=== PATIENT | female | born 1960 | race Caucasian/White ===

== ENCOUNTER 2023-05-31 09:57 | Outpatient (CLI) | payer OTHER ==
[~2023-05-31] VITALS: Ht 167.6 cm; Wt 81.1 kg
[~2023-05-31 09:57] MED LIST: AMBIEN 10MG10 MG PO; CARAFATE 1GM1 G PO; CITRACAL + D CA1 TAB PO; ESTRACE 1MG1 MG/TAB PO; FIORICET 325 MG1 TA1 PO; FIORINAL 325 MG1 CAP PO; FLEXERIL 1010 MG/TAB PO; IMITREX100 MG PO; KLONOPIN 1MG1 MG PO; NATURAL POTASS595 MG PO; NEURONTIN300 MG/CAP PO; PHENERGAN 25 TA25 MG PO; PRIL40 PO; SYNTHROID 0.10.15 MG PO; SYNTHROID0.137 MG PO; TENORMIN 2525 MG/TAB PO; VITAMIND3 5000 PO
[2023-05-31] MEDS ORDERED: EMGALITY120 MG/1 M SQ (10:48)
[2023-05-31] MEDS ORDERED: GAVISCON F1 TAB.CHEW PO (10:53)
[2023-05-31] MEDS ORDERED: ARTHROTEC 775 MG/TAB PO (10:53)
[2023-05-31] MEDS ORDERED: PERCOCET 325 MG1 TA2 PO (10:54)
[2023-05-31] MEDS ORDERED: FLEXERIL 1010 MG/TAB PO (10:54)
[2023-05-31] MEDS ORDERED: REGLAN 10MG10 MG/TAB PO (10:54)
[2023-05-31 11:00] VITALS: BP 141/84; PULSE 64; TEMP 98.2
--- NOTE | 2023-05-31 11:05 | NUR ---
Nothing detectable on post void bladder scan. Pt exits dept with steady gait.
== END 2023-05-31 11:30 | disposition home or self-care (01) ==
LOC: EUO 09:57
DX: R30.0 Dysuria (principal)

== ENCOUNTER → 2023-11-16 | Outpatient (CLI) | payer OTHER ==
[~2023-11-16] MED LIST changes: +ARTHROTEC 775 MG/TAB PO; +EMGALITY120 MG/1 M SQ; +GAVISCON F1 TAB.CHEW PO; +PERCOCET 325 MG1 TA2 PO; +REGLAN 10MG10 MG/TAB PO
== END ==
LOC: COL.RAD 09:23
DX: M54.17 Radiculopathy, lumbosacral region (principal)